=== PATIENT | female | born 1975 | race Caucasian/White ===

== ENCOUNTER 2018-10-09 12:35 | Emergency (ER) | payer OTHER ==
--- OUTSIDE RECORDS SUMMARY | 2018-10-09 12:36 | XMS REPORT ---
:1975 [facility] Address [address] [place] [address] Dr. Rodríguez [address] [place] [id number] Care Team Providers Name Role Phone Unavailable Unavailable Unavailable Problems This patient has no known problems. Allergies, Adverse Reactions, Alerts This patient has no known allergies or adverse reactions. Medications This patient has no known medications.
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
--- OUTSIDE RECORDS SUMMARY | 2018-10-09 12:37 | XMS REPORT | Summary of Care ---
:1975 Author Organization [facility] Address [address] [place] [address] Care Team Providers Name Role Phone Pcp, Patient Does Not Have A Primary Care Provider Reason for Referral Radiology Services (Routine) Status Reason Specialty Diagnoses / Referred By Referred To Procedures Contact Contact New Request Diagnostic Diagnoses Right hand pain Andi Gutierrez Radiology Procedures XR HAND <3 VW RIGHT Freida MD [address] [facility] [place] [address] Reason for Visit Reason Comments New Patient Hand Pain Right hand injury, DOI:09/18/18 Encounter Details Date Type Department Care Team Description 09/21/2018 Office Visit [facility] Orthopaedic Andi Gutierrez Right hand pain Surgery- Lyndsay Guan MD (Primary Dx) [address] [facility] [place] [address] [place] [phone] Allergies No Known Allergiesdocumented as of [...] (167.6 cm) [id number] - [place], [place] - [address] [facility] RIAN GONZALEZY S.BRaúl Incident occurred: 09/18/18 Incident [...] 09/18/2018. Incident location: While on vacation in [facility]. The injury mechanismwas a fall. The [...] file Gets together: Not on file Attends christianity service: Not on file Active member of [...] ID Effective Dates Phone Address Type Group [facility] [id number] [facility] PPO t S ([place]) [place] [address] documented as of this encounter
--- OUTSIDE RECORDS SUMMARY | 2018-10-09 12:37 | XMS REPORT | Summary of Care ---
:1975 Author [address] [facility] Address [address] [place] [address] Care Team Providers Name Role Phone Pcp, Patient Does Not Have A Primary Care Provider Reason for Visit Radiology Services (Routine) Status Reason Specialty Diagnoses / Referred By Referred To Procedures Contact Contact New Request Diagnostic Diagnoses Right hand pain Andi Gutierrez Radiology Procedures XR HAND <3 VW RIGHT Freida MD [address] [place] [address] Encounter Details Date Type Department Care Team Description 09/21/2018 [facility] [address] [place] [address] [place], [place] [phone] Allergies No Known Allergiesdocumented as of this encounter (statuses as of 09/22/2018) Medications Medication Sig Dispensed Refills Start Date End Date Status DICLOFENAC SODIUM ORAL Take 75 mg by 0 Active mouth. zolpidem tartrate Take by mouth. 0 Active (AMBIEN ORAL) phentermine HCl Take by mouth. 0 Active (PHENTERMINE ORAL) documented as of this encounter (statuses as of 09/22/2018) Active Problems Not on filedocumented as of this encounter (statuses as of 09/22/2018) Social History Tobacco Use Types Packs/Day Years Used Date Never Assessed Sex Assigned at Date Recorded Not on file Job Start Date Occupation Industry Not on file Not on file Not on file Travel History Travel Start Travel End No recent travel history available. documented as of this encounter Last Filed Vital Signs Not on filedocumented in this encounter Plan of Treatment Health Maintenance Due Date Last Done Comments DTaP,Tdap,and Td Vaccines (1 - 09/12/1995 Tdap) PAP SMEAR 1997 MAMMOGRAM 2016 INFLUENZA VACCINE 10/23/2018 PNEUMOCOCCAL 0-64 YEARS COMBINED Aged Out No longer eligible based on SERIES patient's age to complete this topic documented as of this encounter Procedures Procedure Name Priority Date/Time Associated Diagnosis Comments XR HAND <3 VW RIGHT Routine 09/21/2018 2:53 PM Right hand pain Results for this CDT procedure are in the results section. documented in this encounter Results XR HAND <3 VW RIGHT (09/21/2018 2:53 PM CDT) Specimen Narrative Performed At No fractures or dislocations PACS Performing Organization Address [facility] Phone Number PACS documented in this encounter Visit Diagnoses Diagnosis Right hand pain Pain in limb documented in this encounter Insurance Payer Benefit Plan / Subscriber ID Effective Dates Phone Address Type Group [facility] [id number] [facility] PPO t S documented as of this encounter
[2018-10-09] MEDS ORDERED: BUPIVACAINE 0.5% PF 10 ML VIAL ONE (13:42)
[2018-10-09] MEDS ORDERED: LIDOCAINE 1% MPF 5 ML VIAL ONE (13:42)
[2018-10-09] MEDS ORDERED: IBUPROFEN 400 MG TAB ONE (13:42)
[2018-10-09] MEDS ORDERED: TETANUS & DIPHTHERIA TOX,ADULT 0.5 ML VIAL ONE (13:43)
[2018-10-09] MEDS ORDERED: ACETAMINOPHEN 500 MG TAB ONE (13:43)
--- NOTE | 2018-10-09 14:09 | RAD REPORT ---
EXAM DESCRIPTION: RAD -Hand Left 3 View - 10/09/2018 1:40 pm CLINICAL HISTORY: Left hand pain status post injury FINDINGS: No fracture or dislocation is seen.
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
[2018-10-09] MEDS ORDERED: DOXYCYCLINE 100 MG CAP PO ONE (16:54)
== END 2018-10-09 17:17 | disposition home or self-care (01) ==
LOC: ER 12:35
PROC: 0JQK0ZZ Repair Left Hand Subcutaneous Tissue and Fascia, Open Approach (ICD-10-PCS; principal; 2018-10-09)
DX: S61.211A Laceration without foreign body of left index finger without damage to nail, initial encounter (principal); W45.8XXA Other foreign body or object entering through skin, initial encounter; Y93.9 Activity, unspecified; Y92.814 Boat as the place of occurrence of the external cause; Z23 Encounter for immunization
CPT/HCPCS: 90471; 90714; 99284

== ENCOUNTER 2020-05-29 09:53 | Inpatient (IN) | payer BC ==
--- OUTSIDE RECORDS SUMMARY | 2020-05-29 09:56 | XMS REPORT | Continuity of Care Document ---
:[address] [facility] t Address [address] [place] [address] Care Team Providers Name Role Phone Brenda DONOVAN L Attending Clinician Payers Payer Name Policy Type Policy Number Effective Date Expiration Date S ource Problems This patient has no known problems. Allergies, Adverse Reactions, Alerts Allergy Allergy Status Severity Reaction(s) Onset Inactive Treating Comm ents Source Name Type Date Date Clinician No Known DA Active U AYLIN Allergie 09-05 Pearlan s 00:00: d 00 [facility] Medications This patient has no known medications. Procedures This patient has no known procedures. Encounters Start End Encounter Admission Attending Care Care Encounter Source Date/Time Date/Time Type Type Clinicians Facility Department ID 2018-09-21 2018-09-21 [facility] [id number] 14:53:41 23:59:00 Encounter [facility]i [facility] [id number] Surgical [id number] Specialti [id number] es [address] [place] 2018-09-21 2018-09-21 Office [facility] [id number] 14:43:28 15:05:07 Visit Andi [facility] [id number] Surgical [id number] Specialti [id number] [address] [place] Results Test Description Test Time Test Comments Results Result [facility] e Comments - ABDOMEN LTD 2020-04-18 12:44:00 [facility] 1975 Sex: F Name: RAYMOND CRISTOBAL [facility] : 1975 Age/S: 44 / F [id number] [place] Unit #: [id number] Loc: [place] [address] Phys: Scottie Jaeger MD Acct: [id number] Dis Date: Status: REG CLI PHONE #: [phone] Exam Date: 04/18/2020 1213 FAX #: Reason: TRESS INCONTINENCE EXAMS: CPT: [id number] ABDOMEN [facility] [id number] RIGHT UPPER QUADRANT ULTRASOUND: Indication: STRESS INCONTINENCE abdominal pain. TECHNIQUE: Multiple longitudinal and transverse 2D real time ultrasound images through the right upper abdomen were acquired. Comparison: None Location: S17 FINDINGS: The liver is mildly enlarged in size, measuring 18.5 cm in length. There is diffusely increased hepatic echotexture without mass lesion or intrahepatic biliary ductal dilatation demonstrated. There is no intrahepatic biliary distention. Normal hepatopetal portal flow direction seen. The gallbladder is sonolucent, with no gallbladder wall thickening, pericholecystic fluid or stones. The common bile duct measures 4.0 mm. The visualized pancreas is normal in size, contour and echogenicity. The right kidney measures 11.4 x 4.5 x 5.4 cm. There is no evidence of renal calculi, suspicious mass nor hydronephrosis. The visualized abdominal aorta is unremarkable. The perihepatic IVC is normal. There is no evidence of ascites. IMPRESSION: 1. Hepatomegaly with diffuse hepatic steatosis. 2. No gallbladder or biliary abnormality seen. at 1244 Reported and signed by: Randall Alejandro M.D. CC: Scottie Jaeger MD; Asher Islas MD Technologist: KRISTY Madera Trnmab Date/Time: 04/18/2020 ([id number]) [id number] PAGE 1 Signed Report Name: RAYMOND CRISTOBAL [facility] : 1975 Age/S: 44 / F [id number] [place] Unit #: [id number] Loc: [place] [address] Phys: Scottie Jaeger MD Acct: [id number] Dis Date: Status: REG CLI PHONE #: [phone] Exam Date: 04/18/2020 1213 FAX #: Reason: TRESS INCONTINENCE EXAMS: CPT: [id number] US ABDOMEN LTD [id number] <Continued> Orig Print D/T: S: 04/18/2020 ([id number]) Probe: PAGE 2 Signed Report
[2020-05-29 10:59] LABS: Absolute Lymphocytes (CBC) 1.2 K/uL (0.7-4.9); Basophils % 0.2 % (0-1.3); Hematocrit 39.8 % (36.0-45.0); Lymphocytes % 7.2 % (15.3-44.8); MPV 10.9 fL (7.6-11.3); RBC Red Blood Cell Count 4.24 M/uL (3.86-4.86)
[2020-05-29] MEDS ORDERED: VANCOMYCIN/NS 1 gm 1 GM/250 ML BAG IV ONE (11:00)
[2020-05-29] MEDS ORDERED: NA CHLORIDE 0.9% 1,000 ML ONE (11:04)
[2020-05-29] MEDS ORDERED: NA CHLORIDE 0.9% 50 ML ONE (11:06)
[2020-05-29] MEDS ORDERED: CEFEPIME/SWI 1gm 10 ML ONE (11:06)
[2020-05-29 11:16] LABS: Albumin 3.4 g/dL (3.4-5.0); Bilirubin Direct 0.2 mg/dL (0-0.2); Bilirubin Total 0.8 mg/dL (0.2-1.0); Protein, Total 7.5 g/dL (6.4-8.2)
[2020-05-29 11:32] LABS: Urine Blood Negative (Negative); Urine Glucose Negative (Negative); Urine Protein 1+ (Negative); Urine Specific Gravity 1.025 (1.005-1.030)
[2020-05-29 12:00] LABS: Blood Morphology Comment NOT SEEN (NOT SEEN); Platelet Estimate ADEQ; White Blood Cell Scan OK (OK)
[2020-05-29] MEDS ORDERED: ONDANSETRON 4 MG/2 ML VIAL ONE ×2 (12:09→15:42)
[2020-05-29] MEDS ORDERED: MORPHINE 4 MG/ML SYR ONE ×2 (12:09→13:32)
--- NOTE | 2020-05-29 12:09 | EDPHYS ---
Physician Documentation [facility] Name: Deidre Ray Age: 44 yrs Sex: Female : 1975 Arrival Date: 05/29/2020 Time: 09:57 Bed 14 Private MD: ED Physician Andrew Russell HPI: 05/29 11:07 This 44 yrs old Female presents to ER via Ambulatory with complaints of jr8 Buttock Pain. 11:07 Patient stated that she has had left buttock pain near rectal region for the past 4 jr8 days. Came in because it has been getting worse daily. Unable to sit down on buttock without substantial pain. Severity of symptoms: At their worst the symptoms were moderate. The patient has not experienced similar symptoms in the past. The patient has not recently seen a physician. 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 - Social history:: Smoking status: Patient/guardian denies using tobacco, the patient reports quitting approximately 17 years ago. ROS: 11:07 Eyes: Negative for injury, pain, redness, and discharge, ENT: Negative for injury, jr8 pain, and discharge, Neck: Negative for injury, pain, and swelling, Cardiovascular: Negative for chest pain, palpitations, and edema, Respiratory: Negative for shortness of breath, cough, wheezing, and pleuritic chest pain, Abdomen/GI: Negative for abdominal pain, nausea, vomiting, diarrhea, and constipation, Back: Negative for injury and pain, MS/Extremity: Negative for injury and deformity, Neuro: Negative for headache, weakness, numbness, tingling, and seizure. 11:07 Skin: Positive for swelling, of the gluteal cleft. Exam: 11:07 Cardiovascular: Regular rate and rhythm with a normal S1 and S2. No gallops, murmurs, jr8 or rubs. Normal PMI, no JVD. No pulse deficits. Respiratory: Lungs have equal breath sounds bilaterally, clear to auscultation and percussion. No rales, rhonchi or wheezes noted. No increased work of breathing, no retractions or nasal flaring. Back: No spinal tenderness. No costovertebral tenderness. Full range of motion. Skin: Warm, dry with normal turgor. Normal color with no rashes, no lesions, and no evidence of cellulitis. MS/ Extremity: Pulses equal, no cyanosis. Neurovascular intact. Full, normal range of motion. Neuro: Awake and alert, GCS 15, oriented to person, place, time, and situation. Cranial nerves II-XII grossly intact. Motor strength 5/5 in all extremities. Sensory grossly intact. Cerebellar exam normal. Normal gait. 11:07 Abdomen/GI: Inspection: abdomen appears normal, Bowel sounds: active, all quadrants, Palpation: abdomen is soft and non-tender, in all quadrants, Rectal exam: hemorrhoid(s), external, with inflammation, without bleeding, without thrombosis, without pain, Patient has induration with warmth and marked tenderness to the left gluteal cleft abutting rectal region . Vital Signs: 10:04 BP 137 / 99; Pulse 124; Resp 18 S; Temp 96.6(TE); Pulse Ox 100% on R/A; Weight 97.52 kg ca1 (R); Height 5 ft. 6 in. (167.64 cm) (R); Pain 9/10; 10:59 BP 127 / 87; Pulse 106; Resp 18; Temp 96.6; Pulse Ox 99% ; Weight 97.52 kg; Height 5 ld1 ft. 6 in. (167.64 cm); Pain 9/10; 12:24 BP 127 / 87; Pulse 96; Resp 18; Pulse Ox 99% on R/A; Pain 2/10; ld1 13:08 BP 137 / 94; Pulse 96; Resp 18; Temp 98.9(O); Pulse Ox 98% on R/A; Pain 6/10; ld1 13:43 BP 122 / 74; Pulse 102; Resp 92; Temp 98.9(TE); Pulse Ox 100% on R/A; Pain 2/10; ld1 10:59 Body Mass Index 34.70 (97.52 kg, 167.64 cm) ld1 MDM: 10:14 Patient medically screened. jr8 12:07 Data reviewed: vital signs, nurses notes, lab test result(s), radiologic studies, CT jr8 scan. Data interpreted: Pulse oximetry: on room air is 99 %. Interpretation: normal. Counseling: I had a detailed discussion with the patient and/or guardian regarding: the historical points, exam findings, and any diagnostic results supporting the discharge/admit diagnosis, lab results, radiology results, the need for further work-up and treatment in the hospital. ED course: Spoke with Dr. Shankar who will take patient to surgery today . 05/29 10:26 Order name: Basic Metabolic Panel; Complete Time: 11:18 [facility] 05/29 10:26 Order name: CBC with Diff; Complete Time: 12:09 [facility] 05/29 10:26 Order name: Hepatic Function; Complete Time: 11:18 [facility] 05/29 10:26 Order name: Blood Culture Adult (2) [facility] 05/29 10:26 Order name: Procalcitonin; Complete Time: 12:15 [facility] 05/29 11:05 Order name: CBC Smear Scan; Complete Time: 12:09 [facility] 05/29 10:46 Order name: CT Pelvis w cont; Complete Time: 12:12 [facility] 05/29 11:32 Order name: Urine Dipstick-Ancillary; Complete Time: 11:36 [facility] 05/29 11:34 Order name: Urine --Ancillary (enter results); Complete Time: 12:44 05/29 14:17 Order name: SARS-COV-2 RT PCR; Complete Time: 14:23 [facility] 05/29 10:26 Order name: IV Saline Lock; Complete Time: 10:58 [facility] 05/29 10:26 Order name: Labs collected and sent; Complete Time: 10:58 [facility] 05/29 10:46 Order name: Urine Test (obtain specimen); Complete Time: 11:41 [facility] 05/29 10:46 Order name: Urine Dipstick-Ancillary (obtain specimen); Complete Time: 11:41 [facility] Administered Medications: 10:58 Drug: NS 0.9% 1000 ml Route: IV; Rate: 125 ml/hr; Site: left antecubital; ld1 10:58 Drug: Cefepime 1 grams Route: IVPB; Rate: 200 ml/hr; Infused Over: 30 mins; Site: left ld1 antecubital; 11:45 Follow up: Response: No adverse reaction ld1 11:55 Drug: morphine 4 mg Route: IVP; Site: right antecubital; ld1 12:16 Follow up: Response: No adverse reaction ld1 11:55 Drug: Zofran (Ondansetron) 4 mg Route: IVP; Site: right antecubital; ld1 12:16 Follow up: Response: No adverse reaction ld1 12:22 Drug: vancoMYCIN 1 grams Route: IVPB; Infused Over: 2 hrs; Site: right antecubital; ld1 13:18 Drug: morphine 4 mg Route: IVP; Site: right antecubital; ld1 13:40 Follow up: Response: No adverse reaction ld1 Disposition: 17:33 Co-signature as Attending Physician, Andrew Russell MD. rn Disposition: 05/29/20 12:09 Hospitalization ordered by Naseem Bran for Inpatient Admission. Preliminary diagnosis are Cutaneous abscess of buttock, Perianal Abscess. - Bed requested for Telemetry/MedSurg (Inpatient). - Status is Inpatient Admission. ld1 - Condition is Stable. - Problem is new. - Symptoms have improved. Signatures: Dispatcher [employer] EDWY Andrew Russell MD MD rn Roszak, Josh, PA PA jr8 Sultana Lawler RN RN ca1 Ana Laura Tirado RN RN ld1 Corrections: (The following items were deleted from the chart) 12:13 12:09 Hospitalization Ordered by Naseem Bran for Inpatient Admission. Preliminary jr8 diagnosis is Cutaneous abscess of buttock. Bed requested for Telemetry/MedSurg (Inpatient). Status is Inpatient Admission. Condition is Stable. Problem is new. Symptoms have improved. jr8 12:24 12:22 CORONAVIRUS+MR.LAB.BRZ ordered. EDWY EDMS 13:32 12:22 CORONAVIRUS ordered. EDWY EDMS 14:44 12:13 05/29/2020 12:09 Hospitalization Ordered by Naseem Bran for Inpatient ld1 Admission. Preliminary diagnosis is Cutaneous abscess of buttock; Perianal Abscess. Bed requested for Telemetry/MedSurg (Inpatient). Status is Inpatient Admission. Condition is Stable. Problem is new. Symptoms have improved. jr8
--- NOTE | 2020-05-29 12:09 | RAD REPORT ---
EXAM DESCRIPTION: CT - Pelvis W/Cont - 05/29/2020 11:42 am CLINICAL HISTORY: Perirectal swelling and pain COMPARISON: None. TECHNIQUE: Computed axial tomography of the pelvis obtained. 50 cc Isovue-[address] scans are performed using dose optimization technique as appropriate and may include automated exposure control or mA/KV adjustment according to patient size. FINDINGS: A 2.5 centimeter low-density mass is present within left perianal tissue extending into th e fat of the left buttock. Stranding is present within the adjacent fat. No adnexal mass. No evidence diverticulitis. No ascites 2 centimeter irregularly-shaped right ovarian cyst probably has recently ruptured IMPRESSION: 2.5 centimeter perianal abscess
--- NOTE | 2020-05-29 12:09 | ER ---
Nurse's Notes [facility] Name: Deidre Ray Age: 44 yrs Sex: Female : 1975 Arrival Date: 05/29/2020 Time: 09:57 Bed 14 Private MD: Diagnosis: Cutaneous abscess of buttock;Perianal Abscess Presentation: 05/29 10:04 Chief complaint: Patient states: Pain, redness and swelling on the L side of the ca1 buttocks x 5 days. tingling and numbing of the L thigh down to L knee. Reports hemorrhoid. Pt uncomfortable and unable to sit to avoid pressure on the buttocks. Coronavirus screen: Client denies travel out of the [place] in the last 14 days. At this time, the client does not indicate any symptoms associated with coronavirus-19. Ebola Screen: Patient negative for fever greater than or equal to 101.5 degrees Fahrenheit, and additional compatible Ebola Virus Disease symptoms Patient denies exposure to infectious person. Patient denies travel to an Ebola-affected area in the 21 days before illness onset. No symptoms or risks identified at this time. Initial Sepsis Screen: Does the patient meet any 2 criteria? No. Patient's initial sepsis screen is negative. Does the patient have a suspected source of infection? No. Patient's initial sepsis screen is negative. Risk Assessment: Do you want to hurt yourself or someone else? Patient reports no desire to harm self or others. Onset of symptoms was May 29, 2020. 10:04 Method Of Arrival: Ambulatory ca1 10:04 Acuity: DENISSE 3 ca1 Triage Assessment: 14:39 General: Behavior is calm, cooperative, appropriate for age. 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 - Social history:: Smoking status: Patient/guardian denies using tobacco, the patient reports quitting approximately 17 years ago. Screenin:35 Abuse screen: Denies threats or abuse. Denies injuries from another. Nutritional ld1 screening: No deficits noted. Tuberculosis screening: No symptoms or risk factors identified. Fall Risk None identified. Assessment: 10:35 General: Appears distressed, uncomfortable. Pain: Complains of pain in gluteal cleft ld1 Pain currently is 9 out of 10 on a pain scale. Quality of pain is described as burning, throbbing, Pain began 2-3 days ago. Is continuous, Alleviated by medications. Neuro: Level of Consciousness is awake, alert, obeys commands, Oriented to person, place, time, situation. Cardiovascular: Patient's skin is warm and dry. Respiratory: Airway is patent Respiratory effort is even, unlabored, Respiratory pattern is regular, symmetrical. GI: Abdomen is round non-distended. : No deficits noted. EENT: No deficits noted. Derm: No deficits noted. Musculoskeletal: No deficits noted. 11:45 Reassessment: ERP at bedside discussing POC. Reassessment:. General: Appears. Pain: ld1 Complains of pain in gluteal cleft Pain currently is 8 out of 10 on a pain scale. Quality of pain is described as burning, throbbing, Pain began 2-3 days ago. 11:45 Reassessment: Notified ERP of pain level. See MAR for orders. ld1 12:24 Reassessment: Patient states pain level is now at a 2/10. ld1 13:08 Reassessment: No changes from previously documented assessment. Patient and/or family ld1 updated on plan of care and expected duration. Pain level reassessed. Patient is alert, oriented x 3, equal unlabored respirations, skin warm/dry/pink. Patient denies pain at this time. Vital Signs: 10:04 BP 137 / 99; Pulse 124; Resp 18 S; Temp 96.6(TE); Pulse Ox 100% on R/A; Weight 97.52 kg ca1 (R); Height 5 ft. 6 in. (167.64 cm) (R); Pain 9/10; 10:59 BP 127 / 87; Pulse 106; Resp 18; Temp 96.6; Pulse Ox 99% ; Weight 97.52 kg; Height 5 ld1 ft. 6 in. (167.64 cm); Pain 9/10; 12:24 BP 127 / 87; Pulse 96; Resp 18; Pulse Ox 99% on R/A; Pain 2/10; ld1 13:08 BP 137 / 94; Pulse 96; Resp 18; Temp 98.9(O); Pulse Ox 98% on R/A; Pain 6/10; ld1 13:43 BP 122 / 74; Pulse 102; Resp 92; Temp 98.9(TE); Pulse Ox 100% on R/A; Pain 2/10; ld1 10:59 Body Mass Index 34.70 (97.52 kg, 167.64 cm) ld1 ED Course: 09:57 Patient arrived in ED. as 10:08 Triage completed. ca1 10:09 Arm band placed on right wrist. ca1 10:14 Sony Mahmood PA is PHCP. jr8 10:14 Andrew Russell MD is Attending Physician. jr8 10:18 Ana Laura Tirado RN is Primary Nurse. ld1 10:35 Patient has correct armband on for positive identification. Placed in gown. Bed in low ld1 position. Call light in reach. Side rails up X 1. 10:35 No provider procedures requiring assistance completed. ld1 10:59 No provider procedures requiring assistance completed. Inserted saline lock: 20 gauge ld1 in left antecubital area, using aseptic technique. Blood collected. 11:42 CT Pelvis w cont In Process Unspecified. EDMS 12:08 Naseem Bran is Hospitalizing Provider. jr8 14:44 Patient admitted, IV remains in place. intact. ld1 Administered Medications: 10:58 Drug: NS 0.9% 1000 ml Route: IV; Rate: 125 ml/hr; Site: left antecubital; ld1 10:58 Drug: Cefepime 1 grams Route: IVPB; Rate: 200 ml/hr; Infused Over: 30 mins; Site: left ld1 antecubital; 11:45 Follow up: Response: No adverse reaction ld1 11:55 Drug: morphine 4 mg Route: IVP; Site: right antecubital; ld1 12:16 Follow up: Response: No adverse reaction ld1 11:55 Drug: Zofran (Ondansetron) 4 mg Route: IVP; Site: right antecubital; ld1 12:16 Follow up: Response: No adverse reaction ld1 12:22 Drug: vancoMYCIN 1 grams Route: IVPB; Infused Over: 2 hrs; Site: right antecubital; ld1 13:18 Drug: morphine 4 mg Route: IVP; Site: right antecubital; ld1 13:40 Follow up: Response: No adverse reaction ld1 Outcome: 12:09 Decision to Hospitalize by Provider. jr8 14:39 Admitted to OR accompanied by nurse. ld1 14:39 Condition: stable 14:39 Discharge instructions given to patient, Instructed on discharge instructions. 14:44 Patient left the ED. ld1 Signatures: Dispatcher [employer] EDMS Cristy Bates Josh, PA PA jr8 Sultana Lawler RN RN ca1 Ana Laura Tirado RN RN ld1 Corrections: (The following items were deleted from the chart) 12:10 11:55 Zofran (Ondansetron) 4 mg IVP in right forearm ld1 ld1 12:10 11:55 morphine 4 mg IVP in right forearm ld1 ld1 13:32 12:37 CORONAVIRUS drawn and sent. ld1 EDNM
[2020-05-29 12:36] LABS: Urine Specific Gravity/Preg 1.025 (1.005-1.030)
--- NOTE | 2020-05-29 14:19 | P.HP ---
Certification for Inpatient Patient admitted to: Inpatient With expected LOS: >2 Midnights Practitioner: I am a practitioner with admitting privileges, knowledge of patient current condition, hospital course, and medical plan of care. Services: Services provided to patient in accordance with Admission requirements found in Title 42 Section 412.3 of the Code of Federal Regulations Patient History Date of Service: 05/29/20 Reason for admission: Pain and swelling in the anal area History of Present Illness: 44-year-old woman with no known past medical history presented to the emergency department with a complaint of pain and swelling in the anal and left gluteal area of 2 days duration. Patient denied any fever or chills or nausea or vomiting or loss of appetite. She described throbbing pain of 10/[address] done in the emergency department demonstrated 2.5 cm perianal abscess. General surgery Dr. Shankar was contact was planning for surgery this aftern oon. Patient given a dose of IV Zosyn and admitted for further management. Allergies No Known Allergies Allergy (Unverified 05/29/20 10:52) - Past Medical/Surgical History -: none - Family History Mother -: Other (see notes) (Diverticulosis) Father -: Stroke - Social History Smoking Status: Never smoker Alcohol use: Yes Place of Residence: Home Review of Systems Other: Except as documented, all other systems reviewed and negative. Physical Examination - Physical Exam General: Alert, In no apparent distress, Oriented x3 HEENT: Atraumatic, PERRLA, Mucous membr. moist/pink, EOMI, Sclerae nonicteric Neck: Supple, JVD not distended, No Thyromegaly Respiratory: Clear to auscultation bilaterally, Normal air movement Cardiovascular: No edema, Regular rate/rhythm, Normal S1 S2 Capillary refill: <2 Seconds Gastrointestinal: Normal bowel sounds, Soft and benign, Non-distended, No tenderness Musculoskeletal: No swelling, No tenderness Integumentary: No rashes, No erythema Neurological: Normal speech, Normal strength at 5/5 x4 extr, Cranial nerves 3-12 intact Rectal: Other (Induration and erythema- medial aspect of the left gluteus.) - Studies Laboratory Data (last 24 hrs) 05/29/20 10:40: WBC 16.40 H, Hgb 13.2, Hct 39.8, Plt Count 179 05/29/20 10:40: Sodium 135 L, Potassium 4.0, BUN 10, Creatinine 0.77, Glucose 115 H, Total Bilirubin 0.8, AST 13 L, ALT 27, Alkaline Phosphatase 72 Assessment and Plan - Problems (Diagnosis) (1) Perirectal abscess Current Visit: Yes Status: Acute (2) Cellulitis, gluteal, left Current Visit: Yes Status: Acute (3) Leukocytosis Current Visit: Yes Status: Acute - Plan Admit to the medical floor. Will treat with IV Zosyn. IV morphine for pain Supportive measures with IV normal saline. General surgery consulted-Dr. Shankar. Monitor CBC to follow leukocytosis. Screened for diabetes with hemoglobin A1c. - Advance Directives Does patient have a Living Will: No Does patient have a Durable POA for Healthcare: No
[2020-05-29] MEDS ORDERED: ACETAMINOPHEN 500 MG TAB PO PRN (14:55)
[2020-05-29] MEDS ORDERED: FENTANYL CITR 100 MCG/2 ML ONE (15:41)
[2020-05-29] MEDS ORDERED: MIDAZOLAM HCL 2 MG/2 ML INJ ONE (15:41)
[2020-05-29] MEDS ORDERED: propofoL 200 MG/20 ML VIAL IV ONE (15:41)
[2020-05-29] MEDS ORDERED: dexAMETHasone 10 MG/ML VIAL ONE (15:41)
[2020-05-29] MEDS ORDERED: KETOROLAC 30 MG/ML INJ ONE (15:41)
[2020-05-29] MEDS ORDERED: LIDOCAINE 1% MPF 5 ML VIAL ONE (15:42)
[2020-05-29] MEDS ORDERED: BUPIVACAINE 0.25% PF 30 ML VIAL ONE (16:05)
[2020-05-29] MEDS: PIPER/TAZO/NS 3.375gm 3.375 GM/100 ML BAG IVPB SCH ×2 (17:00→21:07)
[2020-05-29] MEDS ORDERED: MORPHINE 10 MG/ML VIAL ONE (17:06)
[2020-05-29] MEDS ORDERED: SODIUM HYPOCHLORITE 0.25% 473 ML ONE (17:08)
--- NOTE | 2020-05-29 17:10 | P.OP ---
Preoperative diagnosis: Perirectal Abscess Postoperative diagnosis: Horseshoe Perirectal Abscess Primary procedure: Incision and Drainage of Horseshoe Perirectal Abscess Secondary procedure: Rigid Proctoscopy Anesthesia: GETA + Local Estimated blood loss: <10cc Specimen: cultures Findings: Horseshoe perirectal abscess L to R Complications: None Drain(s): Other (dakins kerlix roll) Transferred to: Recovery Room Condition: Good
[2020-05-29] MEDS ORDERED: HYDROCODONE/APAP 7.5/325 MG TAB PO PRN (17:15)
[2020-05-29] MEDS ORDERED: Ringers Lactate 1,000 ML IV ONE (17:41)
[2020-05-29] MEDS: NA CHLORIDE 0.9% 1,000 ML IV SCH (18:41)
--- NOTE | 2020-05-29 20:33 | CON ---
Date of Consultation: 05/29/2020 Brief Hpi: The patient is a 44-year-old woman with past medical history of hypertension who presents to the emergency department with approximately 4 to 5 days of left perianal pain. She states that s he has had no similar episodes before in the past. No drainage, but it became more and more tender. She tried taking some Tylenol 3 and muscle relaxants with no improvement of her symptoms. As such, she came to the emergency room with the above-stated complaints. She denied any fever, chills, syste santhosh complaints. She has never had similar episodes before in the past. No surgery of this type in t his region, I should say as well. Past Medical History: Significant for hypertension. Past Surgical History: She has had a uterine ablation, dental surgery, and back injections. Allergies: NO KNOWN DRUG ALLERGIES. Medications: Ambien. Social History: She denies smoking. She drinks alcohol bottle of wine per day. Denies recreational drug use. Review of Systems: Ten-point review of systems other than HPI, denies. Physical Examination: Vital Signs: At the time of my examination, her BMI is 34.7. Her vital signs were, temperature of 9 8.9, her blood pressure 123/71, SpO2 100% on room air, respiratory rate 20, heart rate was 102. General: She is awake, alert, oriented. Psychiatric: She answers questions appropriately. HEENT: Normocephalic. Sclerae anicteric. Mucous membranes are moist. Oropharynx clear. Neck: Supple without JVD. Chest: Normal expansion and excursion. Cardiovascular: Regular rate and rhythm. Pulmonary: Clear to auscultation bilaterally. Abdomen: Soft, nontender, nondistended. Rectal: She has swelling and tenderness in left gluteal area in the perirectal position consistent w ith fluctuance consistent with abscess. Skin: Otherwise warm and dry. Laboratory Data: Reveals a white blood count of 16.4, hemoglobin of 13.2, hematocrit of 39.8, platel et count is 179, neutrophils 85%. Her sodium 135, potassium 4.0, chloride 103, carbon dioxide 25, BU N 10, creatinine 0.7, glucose is 115, total bilirubin 0.8, direct bilirubin 0.2, AST 13, ALT 27, augustin line phosphatase is 72. Procalcitonin 0.05. Her glucose was 115. UA showed 3+ ketones, 1+ protein, otherwise negative. Urine test was negative. COVID test negative. She had imaging perfo rmed, which included a pelvic CT, which showed a 2 cm irregular-shaped right ovarian cyst, probably h as recently ruptured, and a 2.5 cm perianal abscess, specifically low-density mass present on the lef t perianal tissue extending to the fat. At the left buttock, stranding is present with the adjacent fat consistent with perianal abscess. Assessment And Plan: This is a 44-year-old female who comes in with signs and symptoms of left peria nal abscess. 1.IV fluid hydration. 2.Antibiotic coverage. 3.I have explained the risks, benefits, and alternatives of incision and drainage of this left peria nal abscess, including but not limited to bleeding, infection, damage to surrounding tissue, need for further operative procedure. The patient agrees to proceed as indicated. DOUGLAS/NICOL Voice ID: [id number] Report ID: [id number]
[2020-05-29] MEDS ORDERED: PIPER/TAZO/NS 3.375gm 3.375 GM/100 ML BAG ONE (20:43)
[2020-05-29 20:59] VITALS: BMI 34.7
[2020-05-29] MEDS: MORPHINE 2 MG/ML SYR IV PRN (22:02)
--- NOTE | 2020-05-30 00:24 | OP ---
Date of Procedure: 05/29/2020 Surgeon: Mateusz Shankar MD, Preoperative Diagnosis: Perirectal abscess. Postoperative Diagnosis: Horseshoe perirectal abscess. Procedure Performed: Incision and drainage of horseshoe perirectal abscess. Secondary Procedure: Rigid proctoscopy. Anesthesia: General endotracheal plus local with 0.25% Marcaine without epinephrine. Estimated Blood Loss: Less than 10 cc. Specimen: Cultures sent for both aerobic and anaerobic speciation. Findings: Horseshoe perirectal abscess from left to right approximately 9 to 10 cm x 4 cm x 4 cm siz e. Complications: None. Drains: Dakin's, Kerlix roll damp to dry used as packing material. Disposition: The patient was transferred to recovery room in good condition. Procedure In Detail: After informed consent was obtained, patient was brought to the operating room, prepped and draped in the usual sterile fashion in the lithotomy position. After adequate anesthesi a was achieved, a rigid proctoscopy was performed to look for any obvious perirectal involvement. Th ere was a large stool burden, but no obvious involvement of the anus at this point that could be visu alized with perirectal examination via a rigid proctoscopy. I then proceeded to palpate the left per irectal soft tissue where a large fluctuant area was appreciated. I made a curvilinear incision foll owing the perianal tissue approximately 2 cm from the anal verge down through subcutaneous tissues. Immediately encountered was a large amount of feculent abscess material. This was cultured for both aerobic and anaerobic speciation at this time. I extended the incision following the tract superiorl y with digital examination. At this point, additional abscess material was appreciated. I then palp ated the tract and found this to be a horseshoe type perirectal abscess extending from the left incis ion to the right anteriorly between the anus and the vagina and the perineal area. There was a small sentinel pile. A small sentinel pile was decompressed as it was filled with abscess material as wel l. I then removed all the necrotic tissue with curette and used electrocautery to achieve hemostasis . I then copiously irrigated the area multiple times to completely clear. All necrotic material was removed. There was some tracking in left anterior and posterior in addition the horseshoe type orie ntation, but no additional pockets were encountered after the multiloculated horseshoe perirectal abs cess was completely debrided. I then irrigated the area once again. Good hemostasis was achieved wi th no additional maneuvers required. I then soaked a Kerlix roll in 0.25% Dakin solution and packed it into the cavity and a sterile dressing was placed over top. The patient tolerated the procedure we ll without any evidence of complication and transferred to PACU in good condition. All counts were c orrect at the end of the case. DOUGLAS/NICOL Voice ID: [id number] Report ID: [id number]
[2020-05-30] MEDS ORDERED: PIPER/TAZO/NS 3.375gm 3.375 GM/100 ML BAG ONE (00:44)
[2020-05-30] MEDS: NA CHLORIDE 0.9% 1,000 ML IV SCH ×3 (01:00→03:17)
[2020-05-30] MEDS: PIPER/TAZO/NS 3.375gm 3.375 GM/100 ML BAG IVPB SCH ×3 (03:18→17:12)
[2020-05-30 03:48] LABS: Urine Appearance CLEAR (Clear); Urine Bilirubin NEGATIVE (Negataive); Urine Blood NEGATIVE (Negative); Urine Color YELLOW (Yellow); Urine Glucose 1+ (Negative); Urine Protein NEGATIVE (Negative); Urine Specific Gravity 1.015 (1.005-1.030); Urine Urobilinogen 0.2 mg/dL (0.2-1.0); Urine pH 6.5 (5.0-7.0)
[2020-05-30 03:59] LABS: Urine Microscopic Reflex NO UMIC
[2020-05-30 05:50] LABS: Absolute Lymphocytes (CBC) 0.9 K/uL (0.7-4.9); Basophils % 0.1 % (0-1.3); Lymphocytes % 6.2 % (15.3-44.8); MPV 10.6 fL (7.6-11.3); RBC Red Blood Cell Count 3.56 M/uL (3.86-4.86)
[2020-05-30 06:11] LABS: BUN Blood Urea Nitrogen 10 mg/dL (7-18); Bicarbonate 26 mmol/L (21-32); Glucose Level 166 mg/dL (74-106); Potassium 4.3 mmol/L (3.5-5.1); Sodium Level 140 mmol/L (136-145)
[2020-05-30] MEDS ORDERED: HYDROCODONE/APAP 5/325 MG TAB PO ONE (08:53)
[2020-05-30] MEDS: ENOXAPARIN 40 MG/0.4 ML SQ SCH ×2 (09:00→09:03)
[2020-05-30] MEDS: MORPHINE 2 MG/ML SYR IV PRN ×2 (09:02→17:12)
[2020-05-30] MEDS: ONDANSETRON 4 MG/2 ML VIAL IV PRN ×2 (09:02→17:16)
--- NOTE | 2020-05-30 10:42 | P.PN ---
Subjective Date of Service: 05/30/20 Chief Complaint: Pain and swelling in the anal area Subjective: No new changes (-c/o of pain over surgical area) Physical Examination - Vital Signs Temperature: 96.8 F Blood Pressure: 99/65 Pulse: 60 Respirations: 16 Pulse Ox (%): 96 - Physical Exam General: Alert, In no apparent distress, Oriented x3 HEENT: Atraumatic, PERRLA Neck: Supple, 2+ carotid pulse no bruit Respiratory: Clear to auscultation bilaterally, Normal air movement Cardiovascular: No edema, Normal pulses, Regular rate/rhythm Gastrointestinal: Normal bowel sounds, Soft and benign, Non-distended Musculoskeletal: No clubbing, No swelling, No contractures Integumentary: Other ( left buttock dressing) Neurological: Normal speech, Normal strength at 5/5 x4 extr, Normal tone - Studies Laboratory Data (last 24 hrs) 05/29/20 10:40: WBC 16.40 H, Hgb 13.2, Hct 39.8, Plt Count 179 05/29/20 10:40: Sodium 135 L, Potassium 4.0, BUN 10, Creatinine 0.77, Glucose 115 H, Total Bilirubin 0.8, AST 13 L, ALT 27, Alkaline Phosphatase 72 Assessment And Plan - Current Problems (Diagnosis) (1) Cellulitis, gluteal, left Current Visit: Yes Status: Acute (2) Leukocytosis Current Visit: Yes Status: Acute (3) Perirectal abscess Current Visit: Yes Status: Acute Physician Review Additional Text: Impression Left aris-rectal abscess s/p incision and drainage. Left Buttock pain Plan Continue pain regimen. Follow surgery for decision on wound dressing Continue antibiotic
[2020-05-30] MEDS ORDERED: Oxycodone HCl/Acetaminophen 1 TAB TAB PO PRN (11:02)
--- NOTE | 2020-05-30 14:46 | P.PN ---
Subjective Date of Service: 05/30/20 Chief Complaint: Pain and swelling in the anal area Subjective: Improving (s/p drainage of horseshoe perirectal abscess) Physical Examination - Vital Signs Temperature: 96.8 F Blood Pressure: 99/65 Pulse: 60 Respirations: 16 Pulse Ox (%): 96 - Physical Exam General: Alert, In no apparent distress, Cooperative Cardiovascular: Regular rate/rhythm Gastrointestinal: Soft and benign Assessment And Plan - Current Problems (Diagnosis) (1) Horseshoe abscess of ischiorectal space Current Visit: Yes Status: Acute Plan: - antibiotics - daily dressing changes with dakins / santyl damp to dry packing - sitz baths (2) Perirectal abscess Current Visit: Yes Status: Acute Physician Review Additional Text: Impression Left aris-rectal abscess s/p incision and drainage. Left Buttock pain Plan Continue pain regimen. Follow surgery for decision on wound dressing Continue antibiotic
[2020-05-30] MEDS: BISACODYL E.C. 5 MG TAB PO PRN (21:25)
[2020-05-30 23:40] VITALS: O2SAT 96
[2020-05-31] MEDS: PIPER/TAZO/NS 3.375gm 3.375 GM/100 ML BAG IVPB SCH ×2 (01:05→09:29)
[2020-05-31] MEDS: MORPHINE 2 MG/ML SYR IV PRN (07:20)
[2020-05-31] MEDS: ENOXAPARIN 40 MG/0.4 ML SQ SCH (09:00)
[2020-05-31] MEDS ORDERED: COLLAGENASE 30 GM OINTMENT TOP SCH (09:00)
[2020-05-31] MEDS: BISACODYL E.C. 5 MG TAB PO PRN (09:36)
[2020-05-31 12:23] VITALS: BP 120/71; TEMP 96.9
--- NOTE | 2020-05-31 14:27 | P.DS ---
Admission Date: 05/29/20 Discharge Date: 05/31/20 Disposition: ROUTINE DISCHARGE Discharge Condition: FAIR Reason for Admission: Pain and swelling in the anal area - Problems (1) Perirectal abscess Current Visit: Yes Status: Acute (2) Cellulitis, gluteal, left Current Visit: Yes Status: Acute (3) Leukocytosis Current Visit: Yes Status: Acute Brief History of Present Illness: 44-year-old woman with no known past medical history presented to the emergency department with a complaint of pain and swelling in the anal and left gluteal area of 2 days duration. Patient denied any fever or chills or nausea or vomiti ng or loss of appetite. She described throbbing pain of 10/[address] done in the emergency department demonstrated 2.5 cm perianal abscess. General surgery Dr. Shankar was contact who was planning for surgery. Patient given a dose of IV Zosyn and admitted for further management. Hospital Course: Patient admitted to the medical floor. She was seen by Dr. Shankar and taken to surgery same day. Postop diagnosis was calls issues perirectal abscess. Incision and drainage was done. Patient was treated with IV Zosyn. Patient cleared for discharge by Dr. Shankar. She is prescribed Augmentin and Flagyl to continue treatment for the abscess. Dr. Shankar has discussed wound care with her and patient voiced understanding of the instructions. She will follow Dr. Shankar within 1 week. Vital Signs/Physical Exam: Temp Pulse Resp BP Pulse Ox 96.9 F 71 17 120/71 97 05/31/20 12:00 05/31/20 12:00 05/31/20 12:00 05/31/20 12:05/31/20 12:00 General: Alert, In no apparent distress, Oriented x3 Neck: JVD not distended Respiratory: Other (Nonlabored breathing.) Cardiovascular: No edema, Regular rate/rhythm, Normal S1 S2 Gastrointestinal: Soft and benign, Non-distended Musculoskeletal: No swelling Integumentary: No rashes Neurological: Normal strength at 5/5 x4 extr Laboratory Data at Discharge: WBC 15.00 K/uL (4.3-10.9) H 05/30/20 05:30 Hgb 11.4 g/dL (12.0-15.0) L 05/30/20 05:30 Hct 33.0 % (36.0-45.0) L D 05/30/20 05:30 Plt Count 182 K/uL (152-406) 05/30/20 05:30 Sodium 140 mmol/L (136-145) 05/30/20 05:30 Potassium 4.3 mmol/L (3.5-5.1) 05/30/20 05:30 BUN 10 mg/dL (7-18) 05/30/20 05:30 Creatinine 0.64 mg/dL (0.55-1.3) 05/30/20 05:30 Glucose 166 mg/dL (74-106) H 05/30/20 05:30 Total Bilirubin 0.8 mg/dL (0.2-1.0) 05/29/20 10:40 AST 13 U/L (15-37) L 05/29/20 10:40 ALT 27 U/L (12-78) 05/29/20 10:40 Alkaline Phosphatase 72 U/L (45-117) 05/29/20 10:40 Home Medications: Zolpidem Tartrate [Ambien] 5 mg PO BEDTIME PRN 05/29/20 Amox/Clavulanate [Augmentin 875-125 Tab] 875 mg PO BID #28 tab 05/31/20 Collagenase [Santyl Ointment*] 1 appl TOP DAILY #1 tube 05/31/20 Oxycodone HCl/Acetaminophen [Percocet 5/325 Tab*] 1 tab PO Q4H PRN #20 tab 05/31/20 bisacodyL [Dulcolax*] 5 mg PO DAILY PRN #30 tab 05/31/20 metroNIDAZOLE [Flagyl] 500 mg PO Q8H #42 tablet 05/31/20 New Medications: Amox/Clavulanate [Augmentin 875-125 Tab] 875 mg PO BID #28 tab bisacodyL [Dulcolax*] 5 mg PO DAILY PRN #30 tab PRN Reason: Constipation metroNIDAZOLE [Flagyl] 500 mg PO Q8H #42 tablet Oxycodone HCl/Acetaminophen [Percocet 5/325 Tab*] 1 tab PO Q4H PRN #20 tab PRN Reason: Pain Scale 8-10 (Severe) Collagenase [Santyl Ointment*] 1 appl TOP DAILY #1 tube Diet: AHA Activity: Ad alexis Followup: Mateusz Shankar MD [ACTIVE - CAN ADMIT] - (within 2 weeks.) Asher Islas MD [Primary Care Provider] - 1-2 Weeks Time spent managing pt's care (in minutes): 36
== END 2020-05-31 15:50 | disposition home or self-care (01) | DRG 345 ==
LOC: ER 09:53 → ERHOLD 14:09 → 2ND 17:51
PROVIDERS: ADMIT Internal Medicine; ATTEND Internal Medicine
PROC: 0D9P8ZZ Drainage of Rectum, Via Natural or Artificial Opening Endoscopic (ICD-10-PCS; principal; 2020-05-29 15:30)
DX: K61.1 Rectal abscess (principal); L03.317 Cellulitis of buttock; K61.0 Anal abscess; D72.829 Elevated white blood cell count, unspecified; Z87.891 Personal history of nicotine dependence; Z79.899 Other long term (current) drug therapy; Z20.822 Contact with and (suspected) exposure to COVID-19
CPT/HCPCS: 36415; 72193; 80048; 80076; 81003; 81025; 83036; 84145; 85025; 87040; 87070; 87075; 87077; 87186; 87205; 99285; J0692; J1100; J1650; J2250; J2270; J2405; J2543; J2704; J3010; J3370; J3590; J7030; J7120; Q9967; U0003